=== PATIENT | female | born 1985 | race Two or more races ===

== ENCOUNTER 2023-11-13 13:17 | Emergency (ER) | payer OTHER ==
[~2023-11-13] VITALS: Ht 154.9 cm; Wt 62.6 kg
[2023-11-13] MEDS ORDERED: CAMILA0.35 MG PO (13:27)
== END 2023-11-13 17:08 | disposition home or self-care (01) ==
LOC: ER 13:19
DX: L02.411 Cutaneous abscess of right axilla (principal)

== ENCOUNTER 2024-01-11 16:16 | Emergency (ER) | payer OTHER ==
[~2024-01-11] VITALS: Ht 154.9 cm; Wt 62.6 kg
[~2024-01-11 16:16] MED LIST: CAMILA0.35 MG PO
[2024-01-11] MEDS ORDERED: KETOROLAC TROMETHAMINE 30 MG VIAL IM STA (18:44)
[2024-01-11] MEDS ORDERED: CLINDAMYCIN PHOSPHATE 150 MG/ML (300mg) IM STA (18:45)
[2024-01-11] MEDS ORDERED: KETO10TA2 PO (19:02)
[2024-01-11] MEDS ORDERED: CLEOCIN HCL300 MG PO (19:02)
== END 2024-01-11 19:09 | disposition home or self-care (01) ==
LOC: ER 16:16
DX: L02.411 Cutaneous abscess of right axilla (principal); K58.8 Other irritable bowel syndrome; N80.8 Other endometriosis